=== PATIENT | female | born 1950 | race Caucasian/White ===

== ENCOUNTER 2021-07-17 19:03 | Emergency (ER) | payer MEDICARE, OTHER ==
[2021-07-17 20:19] LABS: BILIRUBIN NEGATIVE (NEGATIVE); BLOOD NEGATIVE Ery/uL (NEGATIVE); CLARITY HAZY (CLEAR); COLOR YELLOW (YELLOW); GLUCOSE (U) NORMAL (NORMAL); LEUKOCYTES NEGATIVE Leu/uL (NEGATIVE); NITRITE NEGATIVE (NEGATIVE); PROTEIN NEGATIVE (NEGATIVE); UROBILINOGEN 0.2 mg/dL (0.2-1.0); pH 7.5 (5.0-9.0)
[2021-07-17 20:19] LABS: BASOPHIL 0.7 % (0-2); EOSINOPHIL 0.3 % (0-7); HCT 42.3 % (37.0-47.0); HGB 13.2 g/dl (12.5-16.0); LYMPHOCYTE 9.4 % (15-48); MCH 25.7 pg (25.0-31.0); MCHC 31.2 g/dL (32.0-36.0); MCV 82.5 fL (78.0-100.0); MONOCYTE 6.5 % (0-12); MPV 11.2 fL (6.0-9.5); NEUTROPHIL 80.7 % (41-80); NRBC 0; PLT 317 K/uL (150-400); RBC 5.13 M/uL (4.20-5.40); RDW 15.1 % (11.5-14.0); WBC 22.9 K/uL (4.0-10.5)
[2021-07-17 20:41] LABS: ALBUMIN 3.7 g/dL (3.4-5.0); BILIRUBIN - TOTAL 0.4 mg/dL (0.2-1.0); BUN/CREAT RATIO (CALC) 19.4 RATIO; CREATININE 0.72 mg/dL (0.51-0.95); GLOBULIN (CALCULATION) 4.5 g/dL; POTASSIUM 3.5 mmol/L (3.5-5.1); TOTAL PROTEIN 8.2 g/dL (6.4-8.2)
[2021-07-17 20:53] LABS: LACTIC ACID 1.8 mmol/L (0.4-1.9)
[2021-07-17] MEDS ORDERED: ULTRAM50 MG PO (22:55)
[2021-07-17] MEDS ORDERED: KEFLEX250 MG PO (22:55)
== END 2021-07-17 23:15 | disposition home or self-care (01) ==
LOC: FER 19:03
PROVIDERS: Emergency Medicine Emergency Medical Services
DX: M47.816 Spondylosis without myelopathy or radiculopathy, lumbar region (principal); D72.829 Elevated white blood cell count, unspecified; E11.9 Type 2 diabetes mellitus without complications; I10 Essential (primary) hypertension; Z90.710 Acquired absence of both cervix and uterus; Z86.73 Personal history of transient ischemic attack (TIA), and cerebral infarction without residual deficits; Z79.82 Long term (current) use of aspirin; Z79.02 Long term (current) use of antithrombotics/antiplatelets; X50.9XXA Other and unspecified overexertion or strenuous movements or postures, initial encounter; G20 Parkinson's disease
CPT/HCPCS: 36415; 72131; 73030; 80053; 81003; 83605; 85025; 87088; J0696; J1885; J2270; J2405; J2800; J7050

== ENCOUNTER 2021-12-25 02:46 | Emergency (ER) | payer MEDICARE, OTHER ==
[~2021-12-25 02:46] MED LIST: KEFLEX250 MG PO; ULTRAM50 MG PO
[2021-12-25 03:52] LABS: BASOPHIL 0.7 % (0-2); EOSINOPHIL 1.4 % (0-7); HCT 34.2 % (37.0-47.0); HGB 10.3 g/dl (12.5-16.0); LYMPHOCYTE 14.1 % (15-48); MCHC 30.1 g/dL (32.0-36.0); MCV 86.4 fL (78.0-100.0); MPV 11.4 fL (6.0-9.5); NEUTROPHIL 73.7 % (41-80); NRBC 0; PLT 277 K/uL (150-400); RBC 3.96 M/uL (4.20-5.40); RDW 14.6 % (11.5-14.0); WBC 19.6 K/uL (4.0-10.5)
[2021-12-25 04:12] LABS: CREATININE 0.75 mg/dL (0.51-0.95); POTASSIUM 3.2 mmol/L (3.5-5.1)
[2021-12-25 04:14] LABS: INR 1.07 (0.9-1.2); PROTHROMBIN TIME 13.3 SECONDS (11.8-13.4); PTT 26.2 SECONDS (24.4-34.7)
[2021-12-25] MEDS ORDERED: AUGMENTIN 875-1 EACH PO (04:43)
[2021-12-25] MEDS ORDERED: MYCOLOG15 GM TOP (04:43)
== END 2021-12-25 04:55 | disposition home or self-care (01) ==
LOC: FER 02:46
PROVIDERS: Emergency Medicine Emergency Medical Services
DX: R04.0 Epistaxis (principal); I10 Essential (primary) hypertension; E11.9 Type 2 diabetes mellitus without complications; G20 Parkinson's disease; F02.80 Dementia in other diseases classified elsewhere, unspecified severity, without behavioral disturbance, psychotic disturbance, mood disturbance, and anxiety; Z79.4 Long term (current) use of insulin; Z86.16 Personal history of COVID-19; Z88.8 Allergy status to other drugs, medicaments and biological substances; Z79.82 Long term (current) use of aspirin; Z79.02 Long term (current) use of antithrombotics/antiplatelets; Z86.73 Personal history of transient ischemic attack (TIA), and cerebral infarction without residual deficits
CPT/HCPCS: 36415; 80048; 85025; 85610; 85730; C9046; J2370